=== PATIENT | male | born 1970 | race Caucasian/White ===

== ENCOUNTER 2018-03-11 11:34 | Emergency (ER) | payer BC, OTHER ==
[~2018-03-11] VITALS: Ht 185.4 cm; Wt 105.0 kg
[2018-03-11 11:40] VITALS: BP 144/81; PULSE 99; RESP 16; TEMP 98.1; O2SAT 98
[2018-03-11] MEDS ORDERED: SODIUM CHLOR 0.9% 1000 ML INJ 1,000 ML IV SCH (14:03)
[2018-03-11] MEDS ORDERED: SODIUM CHLORIDE 0.9% FLUSH 10 ML FLUSH IV FLUSH PRN (14:15)
[2018-03-11] MEDS ORDERED: METOCLOPRAMIDE HCL 10 MG/2 ML VIAL IV PUSH ONE (14:15)
[2018-03-11] MEDS ORDERED: MORPHINE SULFATE 4 MG/ML INJ IV PUSH ONE ×2 (14:15→16:15)
[2018-03-11] MEDS ORDERED: KETOROLAC TROMETHAMINE 30 MG/ML (IVP) VIAL IVP ONE (14:15)
--- NOTE | 2018-03-11 14:24 | PD ---
HPI Chief Complaint: Flank/Kidney Pain Time Seen by Provider: 14:00 Travel History International Travel<30 days: No Contact w/Intl Traveler<30days: No Traveled to known affect area: No History of Present Illness HPI The patient is a 48-year-old male who presents to the emergency department for left flank pain. The patient developed left flank pain last night which has progressively worsened. The pain is located mid left back and radiates to left lower quadrant. Pain is sharp, stabbing, associated with mild nausea. He denies any vomiting or diarrhea. He denies any dysuria, frequency, or urgency. However, he does note his urine is dark colored but denies any gross hematuria. The patient denies any history of kidney stones. He denies any history of fever, chills, or sweats. Symptoms are moderate. There are no current alleviating or exacerbating factors. PFSH Past Medical History Medical History: Denies Significant Hx Tetanus Vaccination: < 5 Years Influenza Vaccination: No Past Surgical History Narrative Surgical Multiple orthopedic surgery Social History Alcohol Use: No Tobacco Use: Yes Substance Use: Yes (MARIJUANA) Allergies-Medications (Allergen,Severity, Reaction): Coded Allergies: Sulfa (Sulfonamide Antibiotics) (Verified Allergy, Unknown, 03/11/18) shellfish derived (Verified Allergy, Unknown, 03/11/18) Reported Meds & Prescriptions Reported Meds & Active Scripts Active No Active Prescriptions or Reported Medications Review of Systems Except as stated in HPI: all other systems reviewed are Neg General / Constitutional: No: Fever Cardiovascular: No: Chest Pain or Discomfort Respiratory: No: Shortness of Breath Gastrointestinal: Positive: Nausea, No: Vomiting, Diarrhea, Abdominal Pain Genitourinary: Positive: Flank Pain, No: Urgency, Frequency, Dysuria, Hematuria Skin: No Rash Physical Exam Narrative GENERAL: Awake, alert, pleasant 48-year-old male who appears his stated age and appears in moderate discomfort. SKIN: Focused skin assessment warm/dry. HEAD: Atraumatic. Normocephalic. EYES: No injection or drainage. ENT: No nasal bleeding or discharge. Mucous membranes pink and moist. NECK: Trachea midline. No JVD. CARDIOVASCULAR: Regular rate and rhythm. No murmur appreciated. RESPIRATORY: No accessory muscle use. Clear to auscultation. Breath sounds equal bilaterally. GASTROINTESTINAL: Abdomen soft, mild left flank tenderness. No guarding or rigidity. Negative Bishop's. Negative McBurney's. Back: No CVA tenderness. MUSCULOSKELETAL: No obvious deformities. No clubbing. No cyanosis. No edema. NEUROLOGICAL: Awake and alert. No obvious cranial nerve deficits. Motor grossly within normal limits. Normal speech. PSYCHIATRIC: Appropriate mood and affect; insight and judgment normal. Data Data Last Documented VS Vital Signs Date Time Temp Pulse Resp B/P (MAP) Pulse Ox O2 Delivery O2 Flow Rate FiO2 03/11/18 15:57 80 17 123/74 (90) 98 Room Air 03/11/18 11:40 98.1 Orders Orders Basic Metabolic Panel (Bmp) (03/11/18 14:03) Complete Blood Count With Diff (03/11/18 14:03) Urinalysis - C+S If Indicated (03/11/18 14:03) Ct Abd/Pel W/O Iv Contrast (03/11/18 14:03) Iv Access Insert/Monitor (03/11/18 14:03) Ecg Monitoring (03/11/18 14:03) Oximetry (03/11/18 14:03) Morphine Inj (Morphine Inj) (03/11/18 14:15) Sodium Chlor 0.9% 1000 Ml Inj (Ns 1000 M (03/11/18 14:03) Sodium Chloride 0.9% Flush (Ns Flush) (03/11/18 14:15) Ketorolac Inj (Toradol Inj) (03/11/18 14:15) Metoclopramide Inj (Reglan Inj) (03/11/18 14:15) Ciprofloxacin 400 Mg Premix (Cipro 400 M (03/11/18 15:30) Metronidazole 500 Mg Inj (Flagyl 500 Mg (03/11/18 15:30) Morphine Inj (Morphine Inj) (03/11/18 16:15) Labs Laboratory Tests Test 03/11/18 11:56 03/11/18 14:15 Urine Color YELLOW Urine Turbidity CLEAR Urine pH 5.0 Urine Specific [place] 1.024 Urine Protein NEG mg/dL Urine Glucose (UA) NEG mg/dL Urine Ketones NEG mg/dL Urine Occult Blood SMALL Urine Nitrite NEG Urine Bilirubin NEG Urine Urobilinogen LESS THAN 2 mg/dL Urine Leukocyte Esterase NEG Urine RBC 1 /hpf Urine WBC LESS THAN 1 /hpf Microscopic Urinalysis Comment CULT NOT INDICATED White Blood Count 13.8 TH/MM3 Red Blood Count 5.03 MIL/MM3 Hemoglobin 15.9 GM/DL Hematocrit 45.9 % Mean Corpuscular Volume 91.3 FL Mean Corpuscular Hemoglobin 31.6 PG Mean Corpuscular Hemoglobin Concent 34.7 % Red Cell Distribution Width 12.8 % Platelet Count 202 TH/MM3 Mean Platelet Volume 8.2 FL Neutrophils (%) (Auto) 83.6 % Lymphocytes (%) (Auto) 8.2 % Monocytes (%) (Auto) 7.2 % Eosinophils (%) (Auto) 0.7 % Basophils (%) (Auto) 0.3 % Neutrophils # (Auto) 11.6 TH/MM3 Lymphocytes # (Auto) 1.1 TH/MM3 Monocytes # (Auto) 1.0 TH/MM3 Eosinophils # (Auto) 0.1 TH/MM3 Basophils # (Auto) 0.0 TH/MM3 CBC Comment DIFF FINAL Differential Comment Blood Urea Nitrogen 13 MG/DL Creatinine 0.95 MG/DL Random Glucose 95 MG/DL Calcium Level 9.3 MG/DL Sodium Level 138 MEQ/L Potassium Level 4.2 MEQ/L Chloride Level 105 MEQ/L Carbon Dioxide Level 26.6 MEQ/L Anion Gap 6 MEQ/L Estimat Glomerular Filtration Rate 85 ML/MIN [facility] Medical Decision Making Medical Screen Exam Complete: Yes Emergency Medical Condition: Yes Medical Record Reviewed: Yes Interpretation(s) Last Impressions Abdomen/Pelvis CT 03/11/18 1403 Signed Impressions: CONCLUSION: 1. Prominent inflammatory changes adjacent to the mid descending colon charact eristic for acute diverticulitis. There appears to be a tiny walled off perfora uriel diverticulum surrounded by the inflammation. No loculated fluid collections are seen to indicate an abscess at this time. Laboratory Tests Test 03/11/18 11:56 03/11/18 14:15 Urine Color YELLOW Urine Turbidity CLEAR Urine pH 5.0 Urine Specific [place] 1.024 Urine Protein NEG mg/dL Urine Glucose (UA) NEG mg/dL Urine Ketones NEG mg/dL Urine Occult Blood SMALL Urine Nitrite NEG Urine Bilirubin NEG Urine Urobilinogen LESS THAN 2 mg/dL Urine Leukocyte Esterase NEG Urine RBC 1 /hpf Urine WBC LESS THAN 1 /hpf Microscopic Urinalysis Comment CULT NOT INDICATED White Blood Count 13.8 TH/MM3 Red Blood Count 5.03 MIL/MM3 Hemoglobin 15.9 GM/DL Hematocrit 45.9 % Mean Corpuscular Volume 91.3 FL Mean Corpuscular Hemoglobin 31.6 PG Mean Corpuscular Hemoglobin Concent 34.7 % Red Cell Distribution Width 12.8 % Platelet Count 202 TH/MM3 Mean Platelet Volume 8.2 FL Neutrophils (%) (Auto) 83.6 % Lymphocytes (%) (Auto) 8.2 % Monocytes (%) (Auto) 7.2 % Eosinophils (%) (Auto) 0.7 % Basophils (%) (Auto) 0.3 % Neutrophils # (Auto) 11.6 TH/MM3 Lymphocytes # (Auto) 1.1 TH/MM3 Monocytes # (Auto) 1.0 TH/MM3 Eosinophils # (Auto) 0.1 TH/MM3 Basophils # (Auto) 0.0 TH/MM3 CBC Comment DIFF FINAL Differential Comment Blood Urea Nitrogen 13 MG/DL Creatinine 0.95 MG/DL Random Glucose 95 MG/DL Calcium Level 9.3 MG/DL Sodium Level 138 MEQ/L Potassium Level 4.2 MEQ/L Chloride Level 105 MEQ/L Carbon Dioxide Level 26.6 MEQ/L Anion Gap 6 MEQ/L Estimat Glomerular Filtration Rate 85 ML/MIN Differential Diagnosis Differential diagnosis includes nephrolithiasis, hydronephrosis, pyelonephritis , diverticulitis, testicular torsion, epididymitis. Narrative Course IV was established, labs are drawn and sent, and the patient was placed on cardiac telemetry monitoring and continuous pulse oximetry monitoring. The patient was administered morphine, Toradol, Reglan, and IV fluids. Noncontrast CT of the abdomen and pelvis was performed to evaluate for nephrolithiasis. The patient's white count is mildly elevated at 13.8. BNP is unremarkable. Lactic acid is within normal limits. CT does reveal acute diverticulitis with a small perforation that is contained, no free intraperitoneal air. I discussed the patient with the on-call [facility] surgeon, Dr. Sigala, at 4 PM who states the patient can follow-up outpatient. He also advises following up with Dr. Sigala in the office in one weeks duration and returning if symptoms worsen or progress. The patient is advised to return to the emergency department for intractable nausea/vomiting, inability to tolerate oral antibiotics, progressing symptoms, or fever greater than 101.4. The patient agrees and understands. Diagnosis Primary Impression: Diverticulitis large intestine Qualified Codes: K57.20 - Diverticulitis of large intestine with perforation and abscess without bleeding Referrals: Caden Sigala MD 1 week Patient Instructions: General Instructions Additional Instructions: Medications as directed. Follow-up with Dr. Sigala in 1 week. Return if symptoms worsen or progress. Return for fever, intractable pain, intractable nausea/vomiting, or progressing symptoms. Med/Other Pt SpecificInfo: Prescription(s) given Scripts Hydrocodone-Acetaminophen ([place]) 5 Mg-325 Mg Tab 1 TAB PO Q6H Y for PAIN, #15 TAB 0 Refills Prov: Paul Rhodes MD 03/11/18 Metronidazole (Flagyl) 500 Mg Tab 500 MG PO BID for Infection for 10 Days, #20 TAB 0 Refills Prov: Paul Rhodes MD 03/11/18 Ciprofloxacin (Cipro) 500 Mg Tab 500 MG PO BID for Infection for 10 Days, #20 TAB 0 Refills Prov: Paul Rhodes MD 03/11/18 Disposition: 01 DISCHARGE HOME Condition: Stable Paul Rhodes MD Mar 11, 2018 14:24
[2018-03-11 14:31] LABS: AUTOMATED NEUTROPHIL # 11.6 TH/MM3 (1.8-7.7); BASOPHIL % 0.3 % (0.0-2.0); EOSINOPHIL # 0.1 TH/MM3 (0-0.4); EOSINOPHIL % 0.7 % (0.0-4.0); HEMATOCRIT 45.9 % (39.0-51.0); HEMOGLOBIN 15.9 GM/DL (13.0-17.0); LYMPH % 8.2 % (9.0-44.0); LYMPHOCYTE # 1.1 TH/MM3 (1.0-4.8); MEAN CELL VOLUME 91.3 FL (80.0-100.0); MEAN CORPUSCULAR HEMOGLOBIN 31.6 PG (27.0-34.0); MEAN CORPUSCULAR HGB CONC 34.7 % (32.0-36.0); MEAN PLATELET VOLUME 8.2 FL (7.0-11.0); MONO % 7.2 % (0.0-8.0); NEUT % 83.6 % (16.0-70.0); PLATELET COUNT 202 TH/MM3 (150-450); RED BLOOD COUNT 5.03 MIL/MM3 (4.50-5.90); RED CELL DISTRIBUTION WIDTH 12.8 % (11.6-17.2); WHITE BLOOD COUNT 13.8 TH/MM3 (4.0-11.0)
[2018-03-11 14:32] VITALS: BP 139/83; PULSE 83; RESP 18; O2SAT 99
[2018-03-11 14:49] LABS: BICARBONATE 26.6 MEQ/L (21.0-32.0); CALCIUM 9.3 MG/DL (8.5-10.1); CREATININE 0.95 MG/DL (0.60-1.30)
[2018-03-11 14:59] LABS: BILIRUBIN, URINE NEG (NEG); BLOOD, URINE SMALL (NEG); GLUCOSE,URINE NEG (NEG); KETONE, URINE NEG (NEG); NITRITE,URINE NEG (NEG); URINE COLOR YELLOW (YELLW/STRAW); URINE LEUKOCYTE ESTERASE NEG (NEG)
--- NOTE | 2018-03-11 15:12 | RADRPT ---
EXAM DATE: 03/11/2018 2:51 PM EDT AGE/SEX: 48 years / Male INDICATIONS: Left flank pain. Evaluate for renal calculi. CLINICAL DATA: This is the patient's initial encounter. Patient reports that signs and symptoms have been present for 1 day and indicates a pain score of 9/10. MEDICAL/SURGICAL HISTORY: None. None. RADIATION DOSE: 12.42 CTDI (mGy) COMPARISON: No prior exams available for comparison. TECHNIQUE: Multiple contiguous axial images were obtained through the abdomen. Images were obtained using multiple row detector helical technique. Using automated exposure control and adjustment of the mA and/or kV according to patient size, radiation dose was kept as low as reasonably achievable to o btain optimal diagnostic quality images. DICOM format image data is available electronically for rev iew and comparison. Lack of IV contrast limits the diagnosis for certain organ pathology. FINDINGS: Lower Lungs: The visualized lower lungs are clear. Liver: The liver has a homogeneous density without space-occupying lesion. There is no dilation of th e biliary tree. Spleen: Homogeneous density without enlargement. Pancreas: Unremarkable without mass or calcification. Kidneys: Normal in size and shape. No evidence of mass or hydronephrosis. No calcified renal stones. Adrenal Glands: Unremarkable. Aorta: The aorta and proximal iliac vessels are grossly unremarkable without aneurysmal dilation. Bowel/Mesentery: The bowel gas pattern is within normal limits. There is some scattered diverticula along the descending and sigmoid colon. There is focal diffuse inflammatory changes in the mesenteric fat surrounding the mid descending colon characteristic of diverticulitis. No loculated fluid collec tion is seen to suggest an abscess at this time. There appears to be a small walled off perforated di verticulum in the center of the inflammation. No free intraperitoneal air is seen. The appendix is un remarkable. Abdominal Wall: Intact. Retroperitoneum: No evidence of adenopathy in the retrocrural, para-aortic, or deep pelvic regions. Bladder: Contours are smooth. Reproductive Organs: No abnormal masses or calcifications seen. Inguinal: The inguinal region is unremarkable without evidence of adenopathy. Bony Structures: Unremarkable. CONCLUSION: 1. Prominent inflammatory changes adjacent to the mid descending colon characteristic for acute dive rticulitis. There appears to be a tiny walled off perforated diverticulum surrounded by the inflammat ion. No loculated fluid collections are seen to indicate an abscess at this time. Electronically signed by: Garett Goldsmith MD 03/11/2018 3:11 PM EDT
[2018-03-11] MEDS ORDERED: CIPROFLOXACIN 400 MG PREMIX 200 ML IV ONE (15:30)
[2018-03-11] MEDS ORDERED: metroNIDAZOLE 500 MG INJ 100 ML IV ONE (15:30)
[2018-03-11 15:57] VITALS: BP 123/74; PULSE 80; RESP 17; O2SAT 98
[2018-03-11] MEDS ORDERED: METR-1 PO (16:11)
[2018-03-11] MEDS ORDERED: NORC5TAB PO (16:11)
[2018-03-11] MEDS ORDERED: CIPR-9 PO (16:11)
[2018-03-11 17:23] VITALS: BP 139/73
== END 2018-03-11 17:23 | disposition home or self-care (01) ==
LOC: NEPD 11:34
DX: K57.32 Diverticulitis of large intestine without perforation or abscess without bleeding (principal); F12.90 Cannabis use, unspecified, uncomplicated; Z88.2 Allergy status to sulfonamides; Z72.0 Tobacco use
CPT/HCPCS: 74176; 80048; 81001; 85025; 96361; 96365; 96368; 96375; 96376; 99284; J0744; J1885; J2270; J2765; J7030